=== PATIENT | male | born 1955 | race Caucasian/White ===

== ENCOUNTER 2023-11-30 08:14 | Outpatient (CLI) | payer MEDICARE, SELFPAY ==
--- NOTE | 2023-11-30 11:30 | NEURO_ITS ---
Impression: # Complains of numbness of hands. Non-diabetic retired stacker driver. # Bilateral ulnar neuropathy across the elbows, right more than left. # No Carpal Tunnel Syndrome. # Needle/EMG exam not requested. Nerve Conduction Studies Anti Sensory Summary Table Stim Site NR Peak (ms) P-T Amp (?V) Site1 Site2 Delta-P (ms) Dist (cm) Prakash (m/s) Left Median Anti Sensory (2-3nd Digit) Wrist 3.0 52.4 Wrist 2-3nd Digit 3.0 14.0 47 Wrist 3.1 55.1 Wrist 2-3nd Digit 3.0 14.0 47 Right Median Anti Sensory (2-3nd Digit) Wrist 2.9 34.5 Wrist 2-3nd Digit 2.9 14.0 48 Wrist 2.8 49.7 Wrist 2-3nd Digit 2.9 14.0 48 Left Radial Anti Sensory (Base 1st Digit) Wrist 2.2 13.3 Wrist Base 1st Digit 2.2 0.0 Right Radial Anti Sensory (Base 1st Digit) Wrist 2.2 23.7 Wrist Base 1st Digit 2.2 0.0 Left Ulnar Anti Sensory (5th Digit) Wrist 2.8 30.0 Wrist 5th Digit 2.8 14.0 50 Right Ulnar Anti Sensory (5th Digit) Wrist 2.8 14.5 Wrist 5th Digit 2.8 14.0 50 Motor Summary Table Stim Site NR Onset (ms) O-P Amp (mV) Site1 Site2 Delta-0 (ms) Dist (cm) Prakash (m/s) Left Median Motor (Abd Poll Brev) Wrist 3.1 2.2 Elbow Wrist 4.9 27.0 55 Elbow 8.0 2.5 Right Median Motor (Abd Poll Brev) Wrist 3.0 1.5 Elbow Wrist 5.0 28.0 56 Elbow 8.0 4.9 Left Ulnar Motor (Abd Dig Minimi) Wrist 2.7 7.6 A Elbow Wrist 5.8 30.0 52 A Elbow 8.5 6.5 B Elbow Wrist 3.6 20.0 56 B Elbow 6.3 6.0 Right Ulnar Motor (Abd Dig Minimi) Wrist 2.7 6.7 A Elbow Wrist 6.3 29.0 46 A Elbow 9.0 6.4 B Elbow Wrist 3.8 19.0 50 B Elbow 6.5 4.8 F Wave Studies NR F-Lat (ms) L-R F-Lat (ms) Left Median (Mrkrs) (Abd Poll Brev) 27.73 0.03 Right Median (Mrkrs) (Abd Poll Brev) 27.70 0.03 Left Ulnar (Mrkrs) (Abd Dig Min) 28.62 0.10 Right Ulnar (Mrkrs) (Abd Dig Min) 28.52 0.10 MTDD
== END 2023-11-30 08:15 | disposition home or self-care (01) ==
LOC: ANHNEURO 08:16
PROVIDERS: Visit Provider Internal Medicine
DX: R20.2 Paresthesia of skin (principal); G56.03 Carpal tunnel syndrome, bilateral upper limbs
CPT/HCPCS: 95911

== ENCOUNTER 2024-01-12 02:19 | Day surgery (SDC) | payer MEDICARE, SELFPAY ==
[2024-01-05 14:17] VITALS: BMI 34.0
--- NOTE | 2024-01-05 14:19 | PC.NURSE ---
Report to the Outpatient Waiting Room, entrance under the green pavilion located off [facility], at time _0830_ on date _[id number]_. Planned Procedure Time: _1030_.? Time changes happen often and if your time is changed the preop area will call you the afternoon before. - You and your visitor will be asked to self-screen and do not enter if you have any COVID symptoms. Please call surgeon if you need to reschedule. - A mask is optional within the hospital at this time. Patients may have clear liquids (water, carbonated beverages, clear teas, apple juice) until 3 hours prior to surgery with a maximum of 20 ounces. - No food from midnight until time of surgery and no smoking Take only the following medications with a SIP of water on the morning of surgery: __Levothyroxine, Vraylar, Sertraline, Prednisone and if needed Hydrocodone. DO NOT STOP ANY OF YOUR OTHER PRESCRIPTION MEDICATIONS PRIOR TO SURGERY EXCEPT THE FOLLOWING Medications to discontinue per physician __Ibuprofen Date to take last loke____[id number] Please no make-up, nail bengali, hairspray, perfume, deodorant, or body powder the day of surgery.? No jewelry (including any body piercings) or valuables the day of surgery, leave them at home.? Please take a shower or bath the night before, or the morning of, surgery with an antibacterial soap.? Wear comfortable, loose fitting clothing.? - Jewelry must be removed prior to entering the operating room.? Rings and piercings that are not removed may be cut off. - The hospital will not accept responsibility for valuables.? - Please leave all valuables, including medications, at home the day of surgery. If you are going home after surgery, a licensed laborer driver must drive you home.? - NO public transportation without another adult if you receive anesthesia. - We recommend that an adult stay with you for 24 hours following discharge. - We also recommend that you do not drive, make important decision, drink alcoholic beverages, or take any drugs that were not prescribed by your health care provider for at least 24 hours after your discharge time. Follow any additional instructions given to you from your surgeon. Telephone instructions given to __Rod__and asked if any additional questions and then verbalized understanding. Patient advised to call surgeon office or pre surgery nurse liaison [phone] if any additional questions.
--- NOTE | 2024-01-11 09:02 | PM.IMHP ---
H&P: HPI History of Present Illness Date/Time: 01/11/24 09:02 Chief Complaint: Patient has carpal and cubital tunnel syndrome right hand and arm. He has failed conservative treatment. He has had as a positive EMG. He would like to proceed with surgical intervention. Review of Systems Review of Systems: All systems reviewed & are unremarkable except as noted in HPI and below Musculoskeletal: Musculoskeletal: Reports arthralgias, Reports joint swelling and Reports neck pain Neurologic: Reports numbness PMFSH Past Medical History Medical History (Updated 12/23/23 @ 13:21 by Donald Tejada MD) Hyperlipemia Spinal cord stimulator status Thyroid activity decreased Surgical History Surgical History (Updated 12/23/23 @ 13:06 by CASSANDRA Blanco) History of spinal surgery Family History Family History Sibling Diabetes mellitus Malignant neoplasm of prostate Mother Family history of chronic obstructive pulmonary disease Father Family history of lung cancer Malignant neoplasm of prostate Family history of coronary artery disease Family history of throat cancer Family history of malignant neoplasm Social History Social History (Updated 12/23/23 @ 13:07 by CASSANDRA Blanco) Smoking packs per day: 1 Smoking cigarettes per day: 20.0 Years smoked: 50 Smoking pack-years: 50.00 Smoking status: Current every day smoker Tobacco type: cigarettes Second hand tobacco smoke exposure: Yes Alcohol intake: never Substance use: never Substance use type: does not use Do You Feel Safe in your Home?: Yes Lack of Transportation: No Lack of Food: Never True Current Housing: I Have Housing Concerned About Future Housing: No Difficulty Paying Gas/Electric Bills: No Difficulty Paying for Meds: No Currently Unemployed: No Education: Trade/Vocational Certificate Difficulty w/ Childcare or Family Care: No Living arrangements: with family Occupation/Education: retired 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 Gender identity (if verbalized by the patient): Male Spiritual care concerns: No Meds Home Medications and Allergies Home Medications Medication Instructions Recorded Confirmed Type fluticasone furoate 100 1 inhalation inhalation DAILY 02/20/19 01/05/24 History mcg-vilanterol 25 mcg/dose inhalation powder (Breo Ellipta) albuterol sulfate 90 mcg/actuation 2 inh inhalation QID PRN Dyspnea 12/23/23 01/05/24 History aerosol inhaler atorvastatin 20 mg tablet 20 mg PO DAILY 12/23/23 01/05/24 History cariprazine 6 mg capsule (Vraylar) 6 mg PO DAILY 12/23/23 01/05/24 History hydrocodone 5 mg-acetaminophen 325 1 tablet PO QID PRN Pain 12/23/23 01/05/24 History mg tablet levothyroxine 50 mcg tablet 50 mcg PO DAILY 12/23/23 01/05/24 History sertraline 100 mg tablet 100 mg PO DAILY 12/23/23 01/05/24 History trazodone 150 mg tablet 150 mg PO HS 12/23/23 01/05/24 History prednisone 10 mg tablet 10 mg PO BID #20 tabs 12/30/23 01/05/24 Rx ibuprofen 200 mg tablet 400 mg PO Q6H PRN Pain 01/05/24 01/05/24 History Allergies Allergy/AdvReac Type Severity Reaction Status Date / Time ketorolac AdvReac Severe Swelling Verified 01/05/24 14:07 of Lip/Tongue/Throat Exam Narrative: On exam he has a positive Phalen's and carpal tunnel compression test on the right. He also has a positive Phalen's and cubital tunnel compression test on the right. He has numbness in all 5 fingers. 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 Assessment and Plan Assessment and plan (1) Carpal tunnel syndrome of right wrist: Code(s): G56.01 - Carpal tunnel syndrome, right upper limb Status: Acute Assessment and Plan: Patient has carpal and cubital tunnel syndrome right. He has failed conservative treatment like to consider surgical intervention. I
[2024-01-12] VITALS (8 sets, daily range): BP systolic 114–147; BP diastolic 66–89; PULSE 75–93; RESP 10–24; TEMP 36.3–36.6; O2SAT 99–100
[2024-01-12] MEDS: ACETAMINOPHEN 500 MG TABLET 1000 MG PO (08:49)
--- NOTE | 2024-01-12 09:05 | WPDANESEPPF ---
Anes - Initial Pre Proc Eval Procedure: Operation Date: 01/12/24 10:30 Proposed Procedures p Right Carpal and Cubital Tunnel Release - Donald Tejada MD Date/Time: 01/12/24 09:05 Surgeon: Donald Tejada MD Pre Op Diagnosis: right carpal and cubital tunnel syndrome Patient Data Age: 68 Gender: M Height: 1.71 m Weight: 100 kg Allergies Allergy/AdvReac Type Severity Reaction Status Date / Time ketorolac Allergy Severe Swelling Verified 01/12/24 08:44 of Lip/Tongue/Throat Home Medications Medication Instructions Recorded Confirmed Type fluticasone furoate 100 1 inhalation inhalation DAILY 02/20/19 01/12/24 History mcg-vilanterol 25 mcg/dose inhalation powder (Breo Ellipta) albuterol sulfate 90 mcg/actuation 2 inh inhalation QID PRN Dyspnea 12/23/23 01/12/24 History aerosol inhaler atorvastatin 20 mg tablet 20 mg PO DAILY 12/23/23 01/12/24 History cariprazine 6 mg capsule (Vraylar) 6 mg PO DAILY 12/23/23 01/12/24 History hydrocodone 5 mg-acetaminophen 325 1 tablet PO QID PRN Pain 12/23/23 01/12/24 History mg tablet sertraline 100 mg tablet 100 mg PO DAILY 12/23/23 01/12/24 History trazodone 150 mg tablet 150 mg PO HS 12/23/23 01/12/24 History prednisone 10 mg tablet 10 mg PO BID #20 tabs 12/30/23 01/12/24 Rx ibuprofen 200 mg tablet 400 mg PO Q6H PRN Pain 01/05/24 01/12/24 History Patient hx anesthesia problems: none Family hx anesthesia problems: none Results Review: All pre-operative results and documents have been reviewed as part of the pre-operative evaluation. [facility] Past Medical History Medical History (Updated 01/12/24 @ 09:06 by Jeremy Garcia MD) Hyperlipemia Obesity RACQUEL (obstructive sleep apnea) Spinal cord stimulator status Thyroid activity decreased Surgical History Surgical History History of spinal surgery Family History Family History Sibling Diabetes mellitus Malignant neoplasm of prostate Mother Family history of chronic obstructive pulmonary disease Father Family history of lung cancer Malignant neoplasm of prostate Family history of coronary artery disease Family history of throat cancer Family history of malignant neoplasm Social History Social History Smoking packs per day: 1 Smoking cigarettes per day: 20.0 Years smoked: 50 Smoking pack-years: 50.00 Smoking status: Current every day smoker Tobacco type: cigarettes Second hand tobacco smoke exposure: Yes Alcohol intake: never Substance use: never Substance use type: does not use Do You Feel Safe in your Home?: Yes Lack of Transportation: No Lack of Food: Never True Current Housing: I Have Housing Concerned About Future Housing: No Difficulty Paying Gas/Electric Bills: No Difficulty Paying for Meds: No Currently Unemployed: No Education: Trade/Vocational Certificate Difficulty w/ Childcare or Family Care: No Living arrangements: with family Occupation/Education: retired Additional occupation/education comments: haul driver Gender identity (if verbalized by the patient): Male Spiritual care concerns: No Anes - Eval Final PreProcedure Day of Procedure 01/12/24 09:05 Patient weight: obese Heart: regular rate and rhythm Lungs: clear to auscultation Airway: Mallampati scale class II Neurological: alert and oriented Last oral intake: >/= 8 hours ASA classification: III Emergent: no Anesthetic plan: proceed Anesthesia type and monitoring: general LMA and standard monitoring Results Review: All pre-operative results and documents have been reviewed as part of the pre-operative evaluation. Informed Consent: The patient's anesthetic plan and its attendant risks and benefits were discussed with the patient/family/POA. Questions were solicited and answers pro
--- NOTE | 2024-01-12 09:28 | WPDHPUPDATE1 ---
History and Physical Update Update Date/Time: 01/12/24 09:28 History and Physical has been reviewed, including an updated exam of the patient. There are NO changes in the patient's condition. Risks, benefits, and alternatives have been discussed and questions answered. Patient agrees to proceed with procedure.
[2024-01-12] MEDS: LACTATED RINGERS 1,000 ML 30 ML IV CONT (09:30)
[2024-01-12] MEDS: ceFAZolin 2 GM/D5W 50 ML 2 GM/50 ML BAG IVPB (09:54)
[2024-01-12] MEDS: ceFAZolin SODIUM 1 GM VIAL (10:17)
[2024-01-12] MEDS: LIDO 1%/EPINEPHRINE 1:100,000 20 ML VIAL 3 ML INFILTRATE (10:18)
--- NOTE | 2024-01-12 10:48 | W.PM.PROC2 ---
Procedure Note - Detailed Date of Procedure 01/12/24 Pre-op Diagnosis Right carpal and cubital tunnel syndrome Post-op Diagnosis Same Procedure Performed RIGHT carpal tunnel release Surgeon Donald Tejada MD [employer] [place] Anesthesia MAC Indications Pain and Numbness Description of Procedure A general anesthetic was administered. I began with the elbow. A longitudinal incision made in the epicondyle and the olecranon. Dissection carried down to the fascia. Cubital tunnel was released under direct vision the nerve found noted to be through over the released at this time I extended to the epicondylar area all the way through the cubital tunnel. No large twitches were noted throughout the procedure. At this point the wound was irrigated hemostasis obtained and closed with the 2-0 Vicryl and 3-0 nylon a sterile dressing was applied patient tolerated procedure well. After sterile prep and drape, I injected the area of intended incision with 10ml of 1% lidocaine. A longitudinal incision was made in line with the ulnar boarder of the third finger. Dissection carried down to the fascia, the fascia split and the carpal ligament identified. The carpal ligament was released and the flexor retinaculum was released as well. The nerve was noted to be red purple in color and in continuity. The wound was irrigated, hemostasis was obtained and closed with 3-0 prolene. Estimated Blood Loss 5 Drains No Packing No Pathology None sent Complications No immediate complications Condition Stable Disposition Same day [facility] Billing Surgery - Charge Forward: Surgery Billing ([id number] Carpal Tunnel [id number] Cubital Tunnel)
[2024-01-12] MEDS: fentaNYL CITRATE INJ (*CRX) 100 MCG/2 ML VIAL 25 MCG IV PUSH ×4 (11:21→11:52)
[2024-01-12] MEDS: oxyCODONE HCL (*CRX) 5 MG TAB IR PO (12:36)
== END 2024-01-12 12:55 | disposition home or self-care (01) ==
PROVIDERS: PCP Internal Medicine; Visit Provider Orthopaedic Surgery
PROC: (CPT 64721; principal; 2024-01-12 10:30)
DX: G56.01 Carpal tunnel syndrome, right upper limb (principal); G56.21 Lesion of ulnar nerve, right upper limb; E78.5 Hyperlipidemia, unspecified; G47.33 Obstructive sleep apnea (adult) (pediatric); F17.210 Nicotine dependence, cigarettes, uncomplicated; E66.9 Obesity, unspecified; Z68.33 Body mass index [BMI] 33.0-33.9, adult; Z79.51 Long term (current) use of inhaled steroids; Z79.891 Long term (current) use of opiate analgesic; Z79.52 Long term (current) use of systemic steroids; Z79.1 Long term (current) use of non-steroidal anti-inflammatories (NSAID); Z98.890 Other specified postprocedural states; Z98.1 Arthrodesis status; Z96.82 Presence of neurostimulator; Z80.42 Family history of malignant neoplasm of prostate; Z80.1 Family history of malignant neoplasm of trachea, bronchus and lung; Z82.49 Family history of ischemic heart disease and other diseases of the circulatory system
CPT/HCPCS: 64721; 64719; A9270; J0690; J1100; J2003; J2004; J2250; J2405; J2704; J3010; J7040; J7120